=== PATIENT | male | born 1980 | race Two or more races ===

== ENCOUNTER 2019-02-23 05:27 | Emergency (ER) | payer SELFPAY ==
[~2019-02-23] VITALS: Ht 188 cm; Wt 122.0 kg
[2019-02-23 06:41] LABS: BASOPHIL % 0.5 % (0-2); PLATELET COUNT 201 x10^3mcL (130-400); RED CELL DISTRIBUTION WIDTH 14.1 % (11.5-14.5)
[2019-02-23 06:54] LABS: CALCIUM 8.7 mg/dL (8.5-10.1); CHLORIDE SERUM 103 mmol/L (98-107); CREATININE SERUM 0.8 mg/dL (0.7-1.3); GFR1 > 60 mL/min; GLUCOSE SERUM 234 mg/dL (74-106); POTASSIUM SERUM 3.6 mmol/L (3.5-5.1); SODIUM SERUM 135 mmol/L (136-145)
[2019-02-23 06:59] LABS: ALBUMIN 3.8 g/dL (3.4-5.0); ALKALINE PHOSPHATASE 152 U/L (46-116); ALT/SGPT 175 U/L (16-63); AST/SGOT 70 U/L (15-37); BILIRUBIN TOTAL 0.5 mg/dL (0.20-1.00); TOTAL PROTEIN, SERUM 7.6 g/dL (6.4-8.2)
[2019-02-23 08:47] VITALS: BP 135/98
== END 2019-02-23 08:47 | disposition home or self-care (01) ==
LOC: ED 05:27
DX: R07.89 Other chest pain (principal)
CPT/HCPCS: 36415; J1885